=== PATIENT | female | born 2000 | race Caucasian/White ===

== ENCOUNTER → 2018-07-23 | Outpatient (CLI) | payer BC | END | disposition home or self-care (01) | LOC: LAB 11:42 | PROVIDERS: ATTEND Internal Medicine Geriatric Medicine | DX: Z01.82 Encounter for allergy testing (principal); R07.0 Pain in throat; R22.1 Localized swelling, mass and lump, neck | CPT/HCPCS: 76536; 86003; 86005; 87186 ==

== ENCOUNTER → 2024-01-07 | Outpatient (CLI) | payer BC ==
[2024-01-07 08:59] LABS: BASOPHILS % 0.6 % (0.0-2.0); EOSINOPHILS % 1.6 % (0.0-5.0); HEMATOCRIT. 38.5 % (36.0-48.0); LYMPHOCYTES % 40.3 % (20.0-50.0); MEAN CORPUSCULAR HEMOGLOBIN 28.8 pg (28.0-32.0); MEAN CORPUSCULAR HGB CONC 33.9 g/dL (31.0-37.0); MEAN CORPUSCULAR VOLUME 85.1 fL (81.0-99.0); MEAN PLATELET VOLUME 9.2 fl (7.4-10.4); MONOCYTES % 8.3 % (2.0-8.0); NEUTROPHILS % 49.2 % (40.0-76.0); PLATELET 363 x1000/uL (130-400); RED BLOOD CELL COUNT 4.52 mill/uL (4.2-5.4); WHITE BLOOD COUNT 9.1 x1000/uL (4.5-11.0)
[2024-01-07 09:07] LABS: CALCIUM 8.9 mg/dL (8.7-10.4); CARBON DIOXIDE 28 mEq/L (21-32)
[2024-01-07 09:11] LABS: CHLORIDE 108 mEq/L (98-107); IRON 42 ug/dL (50-170); POTASSIUM 4.2 mEq/L (3.5-5.1); SODIUM 141 mEq/L (136-145)
[2024-01-07 09:12] LABS: CREATININE 0.8 mg/dL (0.6-1.0); GLUCOSE 94 mg/dL (70-105); TRIGLYCERIDE 93 mg/dL (0-150); UREA NITROGEN BLOOD 12 mg/dL (9-23)
[2024-01-07 09:13] LABS: LDL CHOLESTEROL 127 mg/dL (5-100)
[2024-01-07 09:14] LABS: ALANINE AMINOTRANSFERASE 70 IU/L (10-49); ALBUMIN 4.6 g/dL (3.2-4.8); ASPARTATE AMINOTRANSFERASE 34 IU/L (<34); B-HCG QUANTITATIVE < 1 mIU/mL (<3); BILIRUBIN TOTAL 0.3 mg/dL (0.1-1.0); CHOLESTEROL 157 mg/dL (<200); HDL CHOLESTEROL 31 mg/dL (>65); PROTEIN TOTAL 7.3 g/dL (6.0-8.3); TOTAL IRON BINDING CAPACITY 311 ug/dl (250-425)
[2024-01-07 09:18] LABS: T4 FREE 1.03 ng/dL (0.89-1.76)
[2024-01-07 09:23] LABS: THYROID STIMULATING HORMONE 4.67 uIU/mL (0.55-4.78)
[2024-01-07 09:35] LABS: HCG SCREEN NEGATIVE
[2024-01-07 12:17] LABS: VITAMIN B12 SERUM 573 pg/mL (211-911)
[2024-01-07 12:20] LABS: FERRITIN 29 ng/mL (10-291); FOLIC ACID (FOLATE) SERUM 16.09 ng/mL (>5.38)
[2024-01-08 08:09] LABS: VITAMIN D 25-OH 9.3 ng/mL (30.0-100.0)
== END | disposition home or self-care (01) ==
LOC: US 07:36
PROVIDERS: ATTEND Internal Medicine Geriatric Medicine
DX: N88.8 Other specified noninflammatory disorders of cervix uteri (principal); N92.4 Excessive bleeding in the premenopausal period
CPT/HCPCS: 36415; 76830; 76856; 80053; 80061; 82306; 82607; 82728; 82746; 83001; 83036; 83540; 83550; 84439; 84443; 84702; 84703; 85025; 86592

== ENCOUNTER → 2024-02-12 | Day surgery (SDC) | payer BC ==
[~2024-02-12] VITALS: Ht 157.5 cm; Wt 104.3 kg
[~2024-02-12] MED LIST: DEXAMETHASONE 4MG/ML 1ML VIAL ONE; ERGO1250 PO; FENTANYL CITRATE/PF 50MCG/ML 2ML VIAL ONE; HYDROMORPHONE HCL/PF 2MG/ML INJ IV PRN; LABETALOL 5MG/ML 4ML INJ IV PRN; LACTATED RINGERS 1,000 ML IV SCH; LIDOCAINE HCL/EPINEPHRINE 1%-EPI 1:100,000 20 ML VIAL ONE; MEPERIDINE HCL/PF 25MG/ML CPJ IV PRN; METF-414 PO; MIDAZOLAM HCL 2 MG/2 ML VIAL ONE; ONDANSETRON HCL 4MG/2ML INJ IV PRN; ONDANSETRON HCL 4MG/2ML INJ ONE; PROPOFOL 200MG/20ML VIAL IV ONE
[2024-02-12 07:37] LABS: BASOPHILS % 0.6 % (0.0-2.0); EOSINOPHILS % 3.2 % (0.0-5.0); HEMOGLOBIN. 12.8 g/dL (12.0-16.0); LYMPHOCYTES % 33.6 % (20.0-50.0); MEAN CORPUSCULAR HGB CONC 33.6 g/dL (31.0-37.0); MEAN CORPUSCULAR VOLUME 86.5 fL (81.0-99.0); MEAN PLATELET VOLUME 9.4 fl (7.4-10.4); MONOCYTES % 7.3 % (2.0-8.0); NEUTROPHILS % 55.3 % (40.0-76.0); PLATELET 351 x1000/uL (130-400); RED BLOOD CELL COUNT 4.39 mill/uL (4.2-5.4); RED CELL DISTRIBUTION WIDTH 14.1 % (11.6-14.6); WHITE BLOOD COUNT 8.6 x1000/uL (4.5-11.0)
[2024-02-12 07:47] LABS: CHLORIDE 107 mEq/L (98-107); POTASSIUM 3.9 mEq/L (3.5-5.1); SODIUM 139 mEq/L (136-145)
[2024-02-12 07:48] LABS: CARBON DIOXIDE 26 mEq/L (21-32)
[2024-02-12 07:53] LABS: CREATININE 0.8 mg/dL (0.6-1.0); GLUCOSE 89 mg/dL (70-105); UREA NITROGEN BLOOD 9 mg/dL (9-23)
[2024-02-12] MEDS: SODIUM CHLORIDE 0.9% 1,000 ML IV SCH (07:59)
[2024-02-12 08:11] LABS: CLARITY URINE CLEAR (CLEAR); COLOR URINE YELLOW (YELLOW); GLUCOSE URINE NEGATIVE (NEGATIVE); KETONES URINE NEGATIVE (NEGATIVE); LEUKOCYTE ESTERASE URINE TRACE (NEGATIVE); NITRITE URINE NEGATIVE (NEGATIVE); OCCULT BLOOD URINE 1+ (NEGATIVE); PH URINE 5.5 (4.5-8.0); PROTEIN URINE NEGATIVE (NEGATIVE); SPECIFIC GRAVITY URINE 1.023 (1.005-1.030); UROBILINOGEN URINE 0.2 E.U./dL (0.2-1.0)
[2024-02-12 08:13] LABS: UCG SCREEN NEGATIVE
[2024-02-12 08:40] LABS: MUCUS URINE 2+ /lpf (< = 2+); RBC URINE 0-2 /hpf (0-2); SQUAMOUS EPITHELIAL CELL URINE 2+ /lpf (RARE/1+)
[2024-02-12 08:41] LABS: BACTERIA URINE TRACE
== END | disposition home or self-care (01) ==
LOC: OR 07:02
PROVIDERS: ATTEND Obstetrics & Gynecology Obstetrics
DX: N75.0 Cyst of Bartholin's gland (principal); Z79.84 Long term (current) use of oral hypoglycemic drugs; Z79.899 Other long term (current) drug therapy; Z98.890 Other specified postprocedural states
CPT/HCPCS: 56440; 80048; 81003; 81025; 85025; 85610; 85730; 36415; 88304; J3010; J1100; J3490; J2250; J2405; J2704

== ENCOUNTER → 2024-04-23 | Outpatient (CLI) | payer BC ==
[~2024-04-23] MED LIST changes: -DEXAMETHASONE 4MG/ML 1ML VIAL ONE; -FENTANYL CITRATE/PF 50MCG/ML 2ML VIAL ONE; -HYDROMORPHONE HCL/PF 2MG/ML INJ IV PRN; -LABETALOL 5MG/ML 4ML INJ IV PRN; -LACTATED RINGERS 1,000 ML IV SCH; -LIDOCAINE HCL/EPINEPHRINE 1%-EPI 1:100,000 20 ML VIAL ONE; -MEPERIDINE HCL/PF 25MG/ML CPJ IV PRN; -MIDAZOLAM HCL 2 MG/2 ML VIAL ONE; -ONDANSETRON HCL 4MG/2ML INJ IV PRN; -ONDANSETRON HCL 4MG/2ML INJ ONE; -PROPOFOL 200MG/20ML VIAL IV ONE
[2024-04-23 08:27] LABS: CHLORIDE 109 mEq/L (98-107); SODIUM 139 mEq/L (136-145)
[2024-04-23 08:28] LABS: CALCIUM 9.1 mg/dL (8.7-10.4); CARBON DIOXIDE 25 mEq/L (21-32)
[2024-04-23 08:30] LABS: CLARITY URINE CLEAR (CLEAR); COLOR URINE YELLOW (YELLOW); GLUCOSE URINE NEGATIVE (NEGATIVE); KETONES URINE NEGATIVE (NEGATIVE); LEUKOCYTE ESTERASE URINE NEGATIVE (NEGATIVE); NITRITE URINE NEGATIVE (NEGATIVE); OCCULT BLOOD URINE TRACE (NEGATIVE); PH URINE 5.5 (4.5-8.0); PROTEIN URINE TRACE (NEGATIVE); SPECIFIC GRAVITY URINE 1.028 (1.005-1.030); UROBILINOGEN URINE 0.2 E.U./dL (0.2-1.0)
[2024-04-23 08:33] LABS: CREATININE 0.8 mg/dL (0.6-1.0); GLUCOSE 100 mg/dL (70-105); IRON 40 ug/dL (50-170)
[2024-04-23 08:34] LABS: LDL CHOLESTEROL 151 mg/dL (5-100); TRIGLYCERIDE 90 mg/dL (0-150); UREA NITROGEN BLOOD 11 mg/dL (9-23)
[2024-04-23 08:35] LABS: ALANINE AMINOTRANSFERASE 70 IU/L (10-49); ALBUMIN 4.4 g/dL (3.2-4.8); ASPARTATE AMINOTRANSFERASE 34 IU/L (<34); CHOLESTEROL 182 mg/dL (<200); HDL CHOLESTEROL 35 mg/dL (>65)
[2024-04-23 08:36] LABS: BILIRUBIN TOTAL 0.3 mg/dL (0.1-1.0); PROTEIN TOTAL 7.6 g/dL (6.0-8.3); TOTAL IRON BINDING CAPACITY 311 ug/dl (250-425)
[2024-04-23 08:37] LABS: BACTERIA URINE 2+; MUCUS URINE 2+ /lpf (< = 2+); RBC URINE 0-2 /hpf (0-2); SQUAMOUS EPITHELIAL CELL URINE 1+ /lpf (RARE/1+); WBC URINE 0-2 /hpf (0-2); YEAST URINE NONE SEEN
[2024-04-23 08:38] LABS: B-HCG QUANTITATIVE < 1 mIU/mL (<3)
[2024-04-23 09:15] LABS: HEPATITIS B SURFACE ANTIGEN NEGATIVE (Negative)
[2024-04-23 09:20] LABS: HIV 1/2 AB P24AG Negative (Negative)
[2024-04-23 09:36] LABS: HEPATITIS A AB IGM NEGATIVE (Negative); HEPATITIS B CORE AB IGM NEGATIVE (Negative)
[2024-04-23 09:37] LABS: HEPATITIS C AB NON REACTIVE (Neg) (Negative)
== END | disposition home or self-care (01) ==
LOC: LAB 07:48
PROVIDERS: ATTEND Internal Medicine Geriatric Medicine
DX: N39.0 Urinary tract infection, site not specified (principal)
CPT/HCPCS: 80053; 80061; 81003; 82306; 83036; 83540; 83550; 84702; 86705; 86709; 87340; 87491; 87591